=== PATIENT | female | born 1985 ===

== ENCOUNTER 2020-06-03 19:08 | Outpatient (REF) | payer OTHER, SELFPAY ==
[2020-06-03 22:36] LABS: HCT 36.3 % (36.0-46.0); MCH 32.3 pg (27.0-33.0); MCHC 33.1 % (32.0-36.0); MCV 97.6 fL (80-95); MPV 12.5 fL (8.0-11.0); Platelet Count 190 10^3/uL (130-400); RBC 3.72 10^6/uL (3.93-5.22); RDW 11.3 % (11.7-14.6); RDW-SD 41.1 fL; WBC 7.21 10^3/uL (4.4-10.8)
[2020-06-03 23:13] LABS: ALT 18 U/L (14-59); AST 13 U/L (15-37); Alkaline Phosphatase 69 U/L (46-116); Anion Gap 8.7 mmol/L (3-11); BUN 13 mg/dL (7-18); Bilirubin, Total 0.3 mg/dL (0.2-1.0); CO2 27.3 mmol/L (21.0-32.0); CREATININE 0.65 mg/dL (0.55-1.02); Calcium 9.1 mg/dL (8.5-10.1); Chloride 102 mmol/L (98-107); Glucose 117 mg/dL (74-106); Potassium 3.6 mmol/L (3.5-5.1); Sodium 138 mmol/L (136-145); TSH (W/Ref FT4) 1.68 uIU/mL (0.36-3.74); Total Protein 7.4 g/dL (6.4-8.2); Vitamin B12 803 pg/mL (193-986)
[2020-06-05 10:42] LABS: Lyme Ab w Rflx to Lyme Confirm Negative (Negative)
[2020-06-06 00:01] LABS: Folate 5.6 ng/mL (See Note)
[2020-06-08 17:32] LABS: Anaplasma phagocytophilum Negative (Negative); B. miyamotoi PCR Negative (Negative); Babesia divergens/MO-1 Negative (Negative); Babesia duncani Negative (Negative); Babesia microti Negative (Negative); Ehrlichia chaffeensis Negative (Negative); Ehrlichia ewingii/canis Negative (Negative); Ehrlichia muris eauclairensis Negative (Negative)
== END 2020-06-03 19:28 ==
LOC: NCHCN 19:08
PROVIDERS: PCP Nurse Practitioner Community Health; Visit Provider Nurse Practitioner Community Health
DX: D64.9 Anemia, unspecified (principal); R42 Dizziness and giddiness; R53.83 Other fatigue; R53.81 Other malaise
CPT/HCPCS: 80053; 85027; 87798; 82607; 82746; 84443; 86618

== ENCOUNTER 2020-06-10 16:36 | Outpatient (REF) | payer OTHER, SELFPAY ==
[2020-06-15 13:21] LABS: IgA 254 mg/dL (85-499); Interpretation (See Note); Tissue Transglutaminase IgA <1.2 U/mL (<4.0)
== END 2020-06-10 16:56 ==
LOC: NCHCN 16:36
PROVIDERS: PCP Nurse Practitioner Community Health; Visit Provider Nurse Practitioner Community Health
DX: E53.8 Deficiency of other specified B group vitamins (principal)
CPT/HCPCS: 82784; 83516